=== PATIENT | female | born 1980 | race Asian ===

== ENCOUNTER 2018-07-03 07:30 | Emergency (ER) | payer BC ==
[~2018-07-03] VITALS: Ht 152.4 cm; Wt 68.0 kg
[~2018-07-03 07:30] MED LIST: ALLEGRA ALRG180 M1 PO; AMOX500C85 PO; FIORICET OR
[2018-07-03 07:40] VITALS: TEMP 98.1
[2018-07-03 08:40] LABS: PLATELET COUNT 288 K/uL (152-353)
[2018-07-03 08:48] LABS: POTASSIUM 4.3 mmol/L (3.6-5.2)
[2018-07-03 09:46] VITALS: BP 110/71
== END 2018-07-03 09:46 | disposition home or self-care (01) ==
LOC: ED 07:30
PROVIDERS: Emergency Medicine
DX: R51 Headache (principal); R11.2 Nausea with vomiting, unspecified
CPT/HCPCS: 36415; 80053; 81025; 85027; 99283

== ENCOUNTER 2019-04-07 20:58 | Emergency (ER) | payer BC ==
[~2019-04-07] VITALS: Ht 152.4 cm; Wt 72.1 kg
[2019-04-07 21:15] VITALS: BP 120/77; TEMP 97.3
== END 2019-04-07 21:57 | disposition home or self-care (01) ==
LOC: ED 20:58
DX: M26.603 Bilateral temporomandibular joint disorder, unspecified (principal)
CPT/HCPCS: 96372; 99283; J1885

== ENCOUNTER 2020-02-05 13:29 | Outpatient (CLI) | payer BC | END 2020-02-05 19:09 | disposition home or self-care (01) | LOC: RAD 13:29 | DX: M54.9 Dorsalgia, unspecified (principal); R42 Dizziness and giddiness; G62.9 Polyneuropathy, unspecified; K21.9 Gastro-esophageal reflux disease without esophagitis ==

== ENCOUNTER 2021-04-04 12:04 | Outpatient (CLI) | payer BC, OTHER | END 2021-04-04 21:45 | disposition home or self-care (01) | LOC: LAB 12:04 | PROVIDERS: ATTEND Family Medicine | DX: R05 Cough (principal); R11.10 Vomiting, unspecified; R19.7 Diarrhea, unspecified; Z11.52 Encounter for screening for COVID-19 | CPT/HCPCS: 87635; G2023; U0003 ==

== ENCOUNTER 2022-03-09 15:38 | Outpatient (CLI) | payer BC | END 2022-03-09 19:09 | disposition home or self-care (01) | LOC: RAD 15:38 | PROVIDERS: ATTEND Family Medicine | DX: M54.2 Cervicalgia (principal); M25.519 Pain in unspecified shoulder ==